=== PATIENT | female | born 1940 | race Caucasian/White ===

== ENCOUNTER 2019-06-15 16:31 | Inpatient (IN) ==
--- NOTE | 2019-06-15 16:40 | Diag Imaging Result Doc PS360 ---
EXAM: CHEST-PORTABLE HISTORY: possible stroke TECHNIQUE: Single view COMPARISON: None. FINDINGS: The lungs are well expanded. The heart is not enlarged. The vessels are not distended. There are no infiltrates. No effusion identified. IMPRESSION: Negative exam. Electronically signed by Rolo Otto 06/15/2019 4:37 PM
--- NOTE | 2019-06-15 16:42 | Diag Imaging Result Doc PS360 ---
EXAM: CT HEAD W/O CONTRAST - 06/15/2019 HISTORY: possible stroke TECHNIQUE: CT head without contrast COMPARISON: None. FINDINGS: There is no evidence of intracranial hemorrhage, mass effect, midline shift, or hydrocephalus. There is no evidence of infarct, although acute infarcts may not be minimally visible. There is no evidence of skull fracture. Visualized portions of paranasal sinuses and mastoid air cells appear clear. IMPRESSION: No visible acute intracranial abnormality. This exam was performed using automated exposure control, adjustment of mA or kV according to patient size, and/or use of iterative reconstruction technique. Electronically signed by Guido Rangel 06/15/2019 4:40 PM
[2019-06-15 17:45] LABS: URINE SOURCE CLEAN CATCH
[2019-06-15 17:49] LABS: BILIRUBIN URINE NEGATIVE (NEGATIVE); BLOOD URINE NEGATIVE (NEGATIVE); COLOR YELLOW; GLUCOSE URINE NEGATIVE (NEGATIVE); KETONE URINE NEGATIVE (NEGATIVE); LEUKOCYTES URINE SMALL (NEGATIVE); NITRITE URINE NEGATIVE (NEGATIVE); PH URINE 5.5; PROTEIN URINE NEGATIVE (NEGATIVE); SP GRAVITY URINE 1.011; TURBIDITY URINE HAZY (CLEAR); UROBILINOGEN URINE NORMAL (NORMAL)
--- NOTE | 2019-06-15 17:50 | EKG Report ---
Test Performed on : 06/15/2019 5:44:38 PM Test Reason : Possible stroke Blood Pressure : / mmHG Vent. Rate : 090 BPM Atrial Rate : 090 BPM P-R Int : 188 ms QRS Dur : 146 ms QT Int : 438 ms P-R-T Axes : 050 -29 097 degrees QTc Int : 535 ms Sinus rhythm. with occasional premature ventricular complexes. Left bundle branch block Abnormal ECG No previous ECGs available Unconfirmed Result
[2019-06-15 17:52] LABS: UR EPITHELIAL CELLS <10 /HPF (<10); URINE BACTERIA 1+ /HPF; URINE CASTS NONE SEEN; URINE CRYSTALS NONE SEEN; URINE RBC <10 /HPF (<10); URINE SMALL ROUND CELLS NONE SEEN; URINE YEAST NONE SEEN
[2019-06-15 18:05] LABS: UR AMPHETAMINES QUAL NONE DETECTED (NONE DETECT); UR BARBITUATES QUAL NONE DETECTED (NONE DETECT); UR BENZODIAZEPIN QUAL NONE DETECTED (NONE DETECT); UR CANNABINOIDS QUAL NONE DETECTED (NONE DETECT); UR COCAINE QUAL NONE DETECTED (NONE DETECT); UR METHADONE QUAL NONE DETECTED (NONE DETECT); UR METHAMPHETAMINE QUAL NONE DETECTED (NONE DETECT); UR OPIATES QUAL NONE DETECTED (NONE DETECT); UR OXYCODONE QUAL NONE DETECTED (NONE DETECT); UR PCP QUAL NONE DETECTED (NONE DETECT); UR PROPOXYPHENE QUAL NONE DETECTED (NONE DETECT); UR TCA QUAL NONE DETECTED (NONE DETECT)
[2019-06-15 18:11] LABS: BASO# 0.03 X1000 (0.0-0.2); BASO% 0.3 % (0.0-0.8); EOS# 0.13 X1000 (0.0-0.7); EOS% 1.3 % (0.0-10.0); HEMATOCRIT 39.7 % (37.0-47.0); HEMOGLOBIN 12.4 g/dL (12.0-16.0); IMM GRAN# 0.02 X1000 (0.0-0.04); IMM GRAN% 0.2 % (0.0-0.5); LYMPH# 2.54 X1000 (1.2-3.4); LYMPH% 25.9 % (20.5-51.1); MCH 29.2 PG (27-31); MCHC 31.2 g/dL (33-37); MCV 93.6 FL (81-99); MONO# 0.68 X1000 (0.11-0.59); MONO% 6.9 % (1.7-9.3); MPV 10.1 FL (7.4-10.4); NEUT% 65.4 % (42.2-75.2); PLT 317 X1000 (130-400); RBC 4.24 XMIL (4.2-5.4); RDW 12.1 % (11.5-14.5)
[2019-06-15 18:28] LABS: INR 0.99; PROTIME 13.6 Seconds (11.0-16.0); PTT 26.8 Seconds (22.3-41.8)
[2019-06-15 18:30] LABS: AGAP 14; ALBUMIN 4.3 g/dL (3.5-5.0); ALKALINE PHOSPHATASE 68 U/L (32-104); BUN 14 mg/dL (8-22); CALCIUM 9.1 mg/dL (8.8-10.2); CHLORIDE 107 mmol/L (98-107); COSMO 286; CREATININE 0.5 mg/dL (0.5-0.9); ESTIMATED GFR > 60; GLUCOSE 106 mg/dL (70-104); GOT 19 U/L (10-30); GPT 16 U/L (10-36); POTASSIUM 4.1 mmol/L (3.5-5.1); SODIUM 143 mmol/L (136-145); TCO2 23 mmol/L (25-35); TOTAL PROTEIN 7.3 g/dL (6.3-8.3)
--- NOTE | 2019-06-15 18:39 | ED EKG INTERP ---
This chart was entered by Felicitas Weiner Scribe, acting as scribe for Bhavana Omer MD. EKG Interpretation - EKG Time of EKG reading by physician:: 17:44 EKG Read and Signed by:: Bhavana Omer EKG Interpretation (*Must complete 3 of following elements*): Abnormal Rate: 90 Rhythm: SR w/occ PVCs [place]: normal QRS: LBB MI Interval: normal ST Wave: normal Attestation - Physician/ EM Attestation Patient care was provided by Advanced Practice Provider:: No The physician spent face to face time with patient:: Yes Advanced Practice Provider documentation review:: Supervising physician onsite and consulted in the evaluation and care of this patient. The physician did have a face to face encounter with the patient. This chart was documented by the indicated scribe, (Felicitas Weiner Scribe) and accurately reflects the services I performed and decisions made by me, Bhavana Omer MD, as attested by the provider's signature.
--- NOTE | 2019-06-15 18:56 | PROVIDER DOCUMENTATION ---
This chart was entered by Rona Finney Scribe, acting as scribe for Bhavana Omer MD. HPI-Neurological Disorder - General Stated Complaint: AMS Time Seen by Provider: 06/15/19 16:27 Source: patient, EMS Allergies/Adverse Reactions: Patient Allergies Allergy/AdvReac Type Severity Reaction Status Date / Time ampicillin Allergy Severe RASH Verified 06/15/19 19:13 atenolol [From Tenormin] Allergy Severe Unknown Verified 06/15/19 19:13 chlorpheniramine Allergy Severe Unknown Verified 06/15/19 19:13 [From AlleRx] chlorpheniramine maleate * Allergy Severe Unknown Verified 06/15/19 19:13 [From AlleRx] chlorpheniramine tannate * Allergy Severe Unknown Verified 06/15/19 19:13 [From AlleRx] codeine [Codeine] Allergy Severe NAUSEA Verified 06/15/19 19:13 erythromycin base Allergy Severe Unknown Verified 06/15/19 19:13 [Erythromycin Base] latex Allergy Severe Unknown Verified 06/15/19 19:13 levofloxacin [Levofloxacin] Allergy Severe SWELLING Verified 06/15/19 19:13 lidocaine HCl * Allergy Severe SHORTNESS Verified 06/15/19 19:13 [From Xylocaine] OF BREATH methylscopolamine nitrate * Allergy Severe Unknown Verified 06/15/19 19:13 [From AlleRx] nabumetone [From Relafen] Allergy Severe Unknown Verified 06/15/19 19:13 naproxen sodium * Allergy Severe Unknown Verified 06/15/19 19:13 [From Anaprox] pentazocine lactate * Allergy Severe Unknown Verified 06/15/19 19:13 [From Talwin] phenazopyridine HCl * Allergy Severe RASH Verified 06/15/19 19:13 [From Azo] phenylephrine tannate * Allergy Severe Unknown Verified 06/15/19 19:13 [From AlleRx] phenylpropanolamine Allergy Severe Unknown Verified 06/15/19 19:13 probenecid Allergy Severe SWELLING Verified 06/15/19 19:13 pseudoephedrine HCl * Allergy Severe Unknown Verified 06/15/19 19:13 [From AlleRx] pyrilamine tannate * Allergy Severe Unknown Verified 06/15/19 19:13 [From AlleRx] metoclopramide HCl * Allergy Mild low blood Verified 06/15/19 19:13 [From Reglan] pressure acetaminophen [From Percocet] Allergy Unknown Unknown Verified 06/15/19 19:13 meperidine HCl * Allergy Unknown Unknown Verified 06/15/19 19:13 [From Demerol] oxycodone HCl * Allergy Unknown Unknown Verified 06/15/19 19:13 [From Percocet] atorvastatin [From Lipitor] Allergy Unknown Verified 06/15/19 19:13 bee venom protein (honey bee) Allergy SWELLING Verified 06/15/19 19:13 bupropion [From Wellbutrin] Allergy Unknown Verified 06/15/19 19:13 celecoxib [From Celebrex] Allergy Unknown Verified 06/15/19 19:13 cetirizine [From Zyrtec] Allergy Unknown Verified 06/15/19 19:13 cholestyramine Allergy DIARRHEA Verified 06/15/19 19:13 cyclopentolate Allergy Unknown Verified 06/15/19 19:13 [From Cyclogyl] diclofenac [From Voltaren] Allergy ABDOMINAL Verified 06/15/19 19:13 PAIN diphenhydramine Allergy Unknown Verified 06/15/19 19:13 [From Benadryl] doxycycline Allergy FLUSHING Verified 06/15/19 19:13 duloxetine [From Cymbalta] Allergy Unknown Verified 06/15/19 19:13 ezetimibe [From Zetia] Allergy Unknown Verified 06/15/19 19:13 fexofenadine [From Della] Allergy Unknown Verified 06/15/19 19:13 guaifenesin [From Entex LA] Allergy Unknown Verified 06/15/19 19:13 lidocaine [From Xylocaine] Allergy SHORTNESS Verified 06/15/19 19:13 OF BREATH loratadine [From Claritin] Allergy Unknown Verified 06/15/19 19:13 meloxicam [From Mobic] Allergy Unknown Verified 06/15/19 19:13 meperidine [From Demerol] Allergy Unknown Verified 06/15/19 19:13 mepivacaine [From Carbocaine] Allergy Unknown Verified 06/15/19 19:13 naproxen [From Anaprox] Allergy Unknown Verified 06/15/19 19:13 oxycodone [From Percocet] Allergy Unknown Verified 06/15/19 19:13 pentazocine [From Talwin] Allergy Unknown Verified 06/15/19 19:13 phenazopyridine Allergy RASH Verified 06/15/19 19:13 [From Pyridium] phenylephrine [From AlleRx] Allergy Unknown Verified 06/15/19 19:13 pseudoephedrine Allergy ITCHING Verified 06/15/19 19:13 [From Sudafed] pyrilamine [From AlleRx] Allergy Unknown Verified 06/15/19 19:13 scopolamine [From AlleRx] Allergy Unknown Verified 06/15/19 19:13 sertraline [From Zoloft] Allergy Unknown Verified 06/15/19 19:13 sulfamethoxazole Allergy RASH Verified 06/15/19 19:13 [From Gantanol] venlafaxine [From Effexor] Allergy Unknown Verified 06/15/19 19:13 clarithromycin [From Biaxin] AdvReac Severe ABDOMINAL Verified 06/15/19 19:13 PAIN duloxetine HCl * AdvReac Severe Unknown Verified 06/15/19 19:13 [From Cymbalta] fluoxetine HCl * AdvReac Severe Unknown Verified 06/15/19 19:13 [From Prozac] mepivacaine HCl * AdvReac Severe Unknown Verified 06/15/19 19:13 [From Carbocaine] methylergonovine maleate * AdvReac Severe Unknown Verified 06/15/19 19:13 [From Methergine] nortriptyline HCl * AdvReac Severe Unknown Verified 06/15/19 19:13 [From Pamelor] omeprazole [From Prilosec] AdvReac Severe Unknown Verified 06/15/19 19:13 omeprazole magnesium * AdvReac Severe Unknown Verified 06/15/19 19:13 [From Prilosec] prednisone AdvReac Severe Unknown Verified 06/15/19 19:13 propranolol AdvReac Severe Unknown Verified 06/15/19 19:13 quinine [Quinine] AdvReac Severe Unknown Verified 06/15/19 19:13 sodium bicarbonate AdvReac Severe Unknown Verified 06/15/19 19:13 [From Zegerid] tramadol AdvReac Severe Unknown Verified 06/15/19 19:13 tramadol HCl * [From Ultram] AdvReac Severe Unknown Verified 06/15/19 19:13 valdecoxib [From Bextra] AdvReac Severe Unknown Verified 06/15/19 19:13 aspirin AdvReac Unknown Verified 06/15/19 19:13 benzonatate AdvReac Unknown Verified 06/15/19 19:13 desipramine [From Norpramin] AdvReac Unknown Verified 06/15/19 19:13 fluoxetine [From Prozac] AdvReac Unknown Verified 06/15/19 19:13 hydrocodone [From Lortab] AdvReac CONSTIPATIO Verified 06/15/19 19:13 N ketoprofen [From Orudis] AdvReac DIARRHEA Verified 06/15/19 19:13 metformin AdvReac Unknown Verified 06/15/19 19:13 methylergonovine AdvReac Unknown Verified 06/15/19 19:13 [From Methergine] metoclopramide [From Reglan] AdvReac DIZZINESS Verified 06/15/19 19:13 minocycline AdvReac DIARRHEA Verified 06/15/19 19:13 nicotine AdvReac Unknown Verified 06/15/19 19:13 norethindrone AdvReac Unknown Verified 06/15/19 19:13 [From Norlutate] nortriptyline [From Pamelor] AdvReac Unknown Verified 06/15/19 19:13 piroxicam [From Feldene] AdvReac NAUSEA/VOMI Verified 06/15/19 19:13 TING vectrin Allergy Severe RASH Uncoded 06/15/19 19:13 methscopolamine Allergy Unknown Uncoded 06/15/19 19:13 Home Medications: Home Medication List Medication Instructions Recorded Confirmed Last Taken Type 5Hydroxytryptophan(Oxitriptan) 200 mg PO WSUPPER 06/15/19 06/15/19 Unknown History [5-Htp] Budesonide [Rhinocort Allergy] 8.43 ml NS BID 06/15/19 06/15/19 Unknown History Carvedilol [Coreg] 12.5 mg PO BID 06/15/19 06/15/19 Unknown History Chlorpheniramine [Chlor-Trimeton] 4 mg PO BID 06/15/19 06/15/19 Unknown History Lactobacillus Rhamnosus GG 1 ea PO DAILY 06/15/19 06/15/19 Unknown History [Probiotic] Losartan [Cozaar] 25 mg PO WLUNCH 06/15/19 06/15/19 Unknown History Melatonin 20 mg PO HS 06/15/19 06/15/19 Unknown History - History of Present Illness-Neuro Nature of Presenting Problem: 79yof presents to ED by EMS cc 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 Ems reports pt is asking repetitive questions and family says that is unlike her. Family denies any recent fall or head trauma according to EMS. Pt reports she just came back from a trip to [place] and just feels sleepy. Pt denies MUNIZ/CP/SOB. Pt has hx of Lyme disease. Pt is A&Ox2, she is oriented to name but not date. Onset/Duration: reports: 1-3 hours ago Timing: reports: still present Approximate time patient was last seen normal?: 03:00 Character of Altered Mental Status: reports: confused Any recent trauma/injury?: reports: none Cognitive Baseline: alert but confused Gait Baseline: walks without assistance Associated Symptoms: reports: confusion, sleepy. denies: slurred speech Similar Symptoms Previously?: No Recently seen or treated by another doctor?: No Review of Systems - Adult - REVIEW OF SYSTEMS - ADULT ROS:: ROS per EMS Constitutional: reports: see HPI. denies: chills, fever, fatique Eyes: reports: no symptoms reported Ears, Nose, Mouth & Throat: reports: no symptoms reported Cardiovascular: reports: see HPI. denies: chest pain Respiratory: reports: see HPI. denies: shortness of breath Gastrointestinal: reports: no symptoms reported Genitourinary: reports: no symptoms reported Musculoskeletal: reports: no symptoms reported Integumentary: reports: no symptoms reported Neurological: reports: see HPI, other (AMS). denies: headache/migraines Psychiatric: reports: no symptoms reported Endocrine: reports: no symptoms reported Hematologic/Lymphatic: reports: no symptoms reported Allergic/Immunologic: reports: no symptoms reported All Other Systems: Reviewed and Negative Past History - Adult - PAST MEDICAL HISTORY-ADULT Review of Records: reports: Nursing Assessment Review, Medications Reviewed, Social history reviewed & non-contributory. Major Childhood Illnesses: reports: denies history Cardiovascular: reports: denies history Respiratory: reports: denies history Gastrointestinal: reports: denies history Obstetrical/Gynecological: reports: denies history Genitourinary: reports: denies history Musculoskeletal: reports: denies history Neurological: reports: denies history Endocrine/Immune: reports: denies history Other Conditions: reports: denies history - IMMUNIZATION STATUS Childhood Immunizations: See Nurse Assessment Flu Vaccine: See Nurse Assessment - FAMILY HISTORY Family History: reviewed, not pertinent Physical Exam- Neurological - Physical Exam-Neuro Initial Vital Signs Reviewed: Yes General Appearance: appears well, alert, no apparent distress. negative: anxious, combative Eye Exam: bilateral eye: normal inspection, PERRL, EOMI HENMT: normocephalic/atraumatic, moist mucous membranes. negative: angioedema Head Injury: no evidence of injury. negative: active bleeding, Garland's Sign, contusions, ecchymosis, flap, lacerations, raccoon eyes, swelling, tenderness Respiratory: chest non-tender, lungs clear, normal breath sounds, no pleuratic chest pain, no respiratory distress, no accessory muscle use. negative: crackles, rales, rhonchi, stridor, wheezing Cardiovascular: normal peripheral pulses, regular rate, rhythm, no edema, no gallop, no JVD, no murmur. negative: bradycardia, tachycardia Abdominal Exam: normal bowel sounds, non tender, soft, no organomegaly, no pulsatile mass. negative: distended, guarding, rigid, rebound Peripheral Pulses: radial (R): 2+, radial (L): 2+ Extremity: normal inspection. 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 negative: abnormal speech, facial asymmetry, facial droop, facial paresthesias Coordination/Gait: normal finger to nose, normal gait Motor/Sensory: no motor deficit, no sensory deficit, no pronator drift. 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 negative: facial droop, motor weakness, sensory deficit Integumentary: normal color, normal turgor, warm/dry. negative: diaphoresis, jaundice, rash Psych/Mental Status: normal mood/affect. negative: oriented x 3 (Oriented x2, to place and self), anxious, disheveled - Glascow Coma Scale Best Eye Response: (4) open spontaneously Best Verbal Response: (5) oriented Best Motor Response: (6) obeys commands Total Glascow Score: 15 Progress - PLAN OF CARE/RESULTS Progress/Plan/Lab Results: Vital Signs - 8 hr 06/15/19 16:59 Temperature 97.7 F Pulse Rate 92 H Respiratory Rate 18 Blood Pressure 163/93 O2 Sat by Pulse Oximetry 97 Laboratory Results - last 24 hr 06/15/19 06/15/19 06/15/19 17:40 17:40 17:58 WBC 9.80 RBC 4.24 Hgb 12.4 Hct 39.7 MCV 93.6 MCH 29.2 MCHC 31.2 L RDW Std Deviation 12.1 Plt Count 317 MPV 10.1 Immature Gran % (Auto) 0.2 Neut % (Auto) 65.4 Lymph % (Auto) 25.9 Ransom % (Auto) 6.9 Eos % (Auto) 1.3 Baso % (Auto) 0.3 Immature Gran # (Auto) 0.02 Neut # (Auto) 6.40 Lymph # (Auto) 2.54 Ransom # (Auto) 0.68 H Eos # (Auto) 0.13 Baso # (Auto) 0.03 PT INR PTT (Actin FS) Sodium Potassium Chloride Carbon Dioxide Anion Gap BUN Creatinine Estimated GFR/1.73 m2 BUN/Creatinine Ratio Glucose Calculated Osmolality Calcium Total Bilirubin AST ALT Alkaline Phosphatase Troponin T High Sens Total Protein Albumin Globulin Albumin/Globulin Ratio Urine Source CLEAN CATCH Urine Color YELLOW Urine Turbidity HAZY Urine pH 5.5 Ur Specific [place] 1.011 Urine Protein NEGATIVE Ur Glucose (Stick) NEGATIVE Ur Ketones (Stick) NEGATIVE Urine Blood NEGATIVE Urine Nitrite NEGATIVE Urine Bilirubin NEGATIVE Urobilinogen Dipstick NORMAL Urine Leukocytes SMALL A Urine WBC (Auto) 10-20 A Urine RBC (Auto) <10 U Epithel Cells (Auto) <10 Urine Bacteria (Auto) 1+ Urine Crystals NONE SEEN Small Round Cells NONE SEEN Urine Casts NONE SEEN Urine Yeast-like Cells NONE SEEN Urine Opiates Screen NONE DETECTED Ur Oxycodone Screen NONE DETECTED Urine Methadone Screen NONE DETECTED U Propoxyphene Qual NONE DETECTED Ur Barbituates Screen NONE DETECTED Ur Tricyclics Screen NONE DETECTED Ur Phencyclidine Scrn NONE DETECTED Ur Amphetamines Screen NONE DETECTED U Methamphetamines Scrn NONE DETECTED U Benzodiazepines Scrn NONE DETECTED Urine Cocaine Screen NONE DETECTED U Cannabinoids Screen NONE DETECTED 06/15/19 06/15/19 06/15/19 17:58 17:58 17:58 WBC RBC Hgb Hct MCV MCH MCHC RDW Std Deviation Plt Count MPV Immature Gran % (Auto) Neut % (Auto) Lymph % (Auto) Ransom % (Auto) Eos % (Auto) Baso % (Auto) Immature Gran # (Auto) Neut # (Auto) Lymph # (Auto) Ransom # (Auto) Eos # (Auto) Baso # (Auto) PT 13.6 INR 0.99 PTT (Actin FS) 26.8 Sodium 143 Potassium 4.1 Chloride 107 Carbon Dioxide 23 L Anion Gap 14 BUN 14 Creatinine 0.5 Estimated GFR/1.73 m2 > 60 BUN/Creatinine Ratio 28 Glucose 106 H Calculated Osmolality 286 Calcium 9.1 Total Bilirubin 0.30 AST 19 ALT 16 Alkaline Phosphatase 68 Troponin T High Sens 25 H Total Protein 7.3 Albumin 4.3 Globulin 3.0 Albumin/Globulin Ratio 1.0 Urine Source Urine Color Urine Turbidity Urine pH Ur Specific [place] Urine Protein Ur Glucose (Stick) Ur Ketones (Stick) Urine Blood Urine Nitrite Urine Bilirubin Urobilinogen Dipstick Urine Leukocytes Urine WBC (Auto) Urine RBC (Auto) U Epithel Cells (Auto) Urine Bacteria (Auto) Urine Crystals Small Round Cells Urine Casts Urine Yeast-like Cells Urine Opiates Screen Ur Oxycodone Screen Urine Methadone Screen U Propoxyphene Qual Ur Barbituates Screen Ur Tricyclics Screen Ur Phencyclidine Scrn Ur Amphetamines Screen U Methamphetamines Scrn U Benzodiazepines Scrn Urine Cocaine Screen U Cannabinoids Screen Orders Category Date Time Status Admit - [facility] Routine AdmDCTranf 06/15/19 19:36 Active Activity - Up with Assistance ORDERED Care 06/15/19 19:36 Active Cardiac Monitoring DIRECTED Care 06/15/19 16:17 Active DVT/PE Risk Assess/Protocol [QM] ORDERED Care 06/15/19 19:36 Active Finger Stick Blood Sugar (ED) DIRECTED Care 06/15/19 16:17 Active Intake and Output-Strict ORDERED Care 06/15/19 19:36 Active Misc. NRSG Communication Order DIRECTED Care 06/15/19 16:17 Active Oxygen Therapy- ED Nursing DIRECTED Care 06/15/19 16:17 Active Saline Loc NOW Care 06/15/19 16:17 Active Vital Signs Order Q 8-HR ASSESS Care 06/15/19 19:36 Active Regular Diet Diet 06/15/19 19:36 Active CHEST-PORTABLE [RAD] Stat Exams 06/15/19 16:[address] HEAD W/O CONTRAST [CT] Stat Exams 06/15/19 16:17 Completed CBC WITH ELECTRONIC DIFF [HEME] Stat Lab 06/15/19 17:58 Completed CBC WITH NO DIFF [HEME] Routine Lab 06/16/19 06:00 Ordered COMPREHENSIVE METABOLIC PANEL [CHEM] Routine Lab 06/16/19 06:00 Uncollected COMPREHENSIVE METABOLIC PANEL [CHEM] Stat Lab 06/15/19 17:58 Completed MAGNESIUM [CHEM] Routine Lab 06/16/19 06:00 Uncollected PROTIME WITH INR [COAG] Stat Lab 06/15/19 17:58 Completed PTT [COAG] Stat Lab 06/15/19 17:58 Completed TROPONIN T HIGH SENSITIVITY Stat Lab 06/15/19 17:58 Completed TSH Routine Lab 06/16/19 06:00 Uncollected URINALYSIS W/POSS RFLX CULT [URINALYSIS] Stat Lab 06/15/19 17:40 Completed URINE CULTURE [RM] Routine Lab 06/15/19 17:52 Ordered URINE DRUG SCREEN PL Stat Lab 06/15/19 17:40 Completed URINE MANUAL MICROSCOPIC [URINALYSIS] Stat Lab 06/15/19 17:40 Completed CefTRIAXONE [Rocephin] 1 gm Med 06/15/19 19:32 Discontinued 0.9% Sodium Chloride Inj [Ns] 50 ml IV NOW CefTRIAXONE [Rocephin] 1 gm Med 06/16/19 18:00 Active 0.9% Sodium Chloride Inj [Ns] 50 ml IV Q24H EKG [EKG] Stat Ther 06/15/19 16:17 Draft Result Diagrams: 06/15/19 17:58 06/15/19 17:58 - REASSESSMENT Reassessment #1 Time Reassessed: 18:40 Status: unchanged (Per family, pt still forgetful, asking questions which she asked 5 minutes ago. Pt forgot the topic of conversation while she was being re- evaluated by me.) - XRAY 1 XRAY: Bilateral XRAY Study: Chest Impression: See EMR Report (IMPRESSION: Negative exam. Electronically signed by Rolo Otto 06/15/2019 4:37 PM) - CT/MRI 1 CT Study: Head Impression: See EMR Report (IMPRESSION: No visible acute intracranial abnorm ality. This exam was performed using automated exposure control, adjustment of mA or kV according to patient size, and/or use of iterative reconstruction technique. Electronically signed by Guido Rangel 06/15/2019 4:40 PM) - CONSULTS/PCP/HOSPITALIST Notification #1 *Consult/PCP/Hospitalist*: d/w Rhea for hospitalist Time Discussed: 18:50 Consult Disposition: Will see in ED #2 Consult: d/w Dr Garrison Time Discussed: 19:10 Consult Disposition: Will see in ED, Admit Departure - Departure Date of Disposition Decision: 06/15/19 Time of Disposition Decision: 18:40 DIAGNOSIS: AMS (altered mental status), UTI (urinary tract infection), TIA (transient ischemic attack) Disposition: ADMITTED INPATIENT 09 Certified Medical Emergency: Emergent Condition: Stable Referrals and Follow-Ups: Daysi Bobby MD [Primary Care Provider] - - Critical Care Note This patient required my direct & personal management of CC.: No Attestation - Physician/ EM Attestation Patient care was provided by Advanced Practice Provider:: No The physician spent face to face time with patient:: Yes Advanced Practice Provider documentation review:: Supervising physician onsite and consulted in the evaluation and care of this patient. The physician did have a face to face encounter with the patient. - NIH Stroke Scale NIH Type: Initial Evaluation Level of Consciousness: 0-Alert LOC Questions (ask month and age): 0-Answers Both Correctly LOC Commands (ask to open & close eyes;make a fist, let go): 0-Obeys Both Correctly Best Gaze (horizontal eye movement): 0-Normal Visual (use finger movement, counting or visual threat): 0-No Visual Loss Facial Palsy (show teeth or raise eyebrows & close eyes tght: 0-Symmetrical Movement Motor Function-left arm: 0-Normal Motor Function-right arm: 0-Normal Motor Function-left le-Normal Motor Function-right le-Normal Limb Ataxia(osayru-msmg-bikcmp, or heel to mishra): 0-No Ataxia Sensory(pin prick to face,arms,trunk,legs-compare side/side): 0-No Ataxia Best Language(name item/read sentence.Ex-Down to Earth): 0-No Aphasia Dysarthria(Pt read words or say words Ex.Mama,Tip-Top,Thanks: 0-Normal Articulation Extinction and Inattention: 0-Normal NIH Total Score: 0 This chart was documented by the indicated scribe, (Rona Finney, [place]) and accurately reflects the services I performed and decisions made by me, Bhavana Omer MD, as attested by the provider's signature.
[2019-06-15] MEDS ORDERED: ROCEPHIN 1 GM in NS 50 ML IV ONE (19:32)
[2019-06-15] MEDS ORDERED: ROCEPHIN ONE (22:29)
[2019-06-15] MEDS ORDERED: NS 0 ML ONE (22:31)
[2019-06-16] MEDS ORDERED: TYLENOL PO ONE (04:09)
[2019-06-16 07:01] LABS: HEMATOCRIT 39.4 % (37.0-47.0); HEMOGLOBIN 12.1 g/dL (12.0-16.0); MCH 28.9 PG (27-31); MCHC 30.7 g/dL (33-37); MPV 10.4 FL (7.4-10.4); RBC 4.19 XMIL (4.2-5.4); RDW 12.2 % (11.5-14.5); WBC 8.59 X1000 (4.8-10.8)
[2019-06-16 07:35] LABS: AGAP 17; ALKALINE PHOSPHATASE 73 U/L (32-104); BUN 13 mg/dL (8-22); CHLORIDE 105 mmol/L (98-107); COSMO 289; CREATININE 0.7 mg/dL (0.5-0.9); ESTIMATED GFR > 60; GLUCOSE 136 mg/dL (70-104); GOT 20 U/L (10-30); GPT 15 U/L (10-36); MAGNESIUM 1.9 mg/dL (1.5-2.7); POTASSIUM 3.6 mmol/L (3.5-5.1); SODIUM 144 mmol/L (136-145); TCO2 22 mmol/L (25-35); TOTAL PROTEIN 7.2 g/dL (6.3-8.3)
[2019-06-16] MEDS ORDERED: FLONASE NAS SCH (09:00)
[2019-06-16] MEDS ORDERED: CHLOR-TRIMETON PO SCH (09:00)
[2019-06-16] MEDS ORDERED: COREG PO SCH (09:00)
--- NOTE | 2019-06-16 11:21 | Diag Imaging Result Doc PS360 ---
EXAM: MRI BRAIN W/WO CONTRAST HISTORY: acute memory loss TECHNIQUE: MRI brain without contrast. The patient refused contrasted images. COMPARISON: None. FINDINGS: Axial, sagittal, and coronal images obtained in multiple sequences. No recent infarct. Minimal microvascular ischemic changes. 9 mm right basal ganglia cyst. No other mass. No midline shift. No hydrocephalus. No epidural or subdural fluid collection. Normal orbits. No sinus opacification. IMPRESSION: No recent infarct and no significant microvascular ischemic changes. Electronically signed by Rolo Otto 06/16/2019 11:19 AM
[2019-06-16] MEDS ORDERED: COZAAR PO SCH (12:00)
[2019-06-16 14:45] VITALS: BP 139/77
--- NOTE | 2019-06-16 16:47 | HISTORY AND PHYSICAL ---
Patient seen and examined while in the ER. Note dictated the following morning. CHIEF COMPLAINT: Altered mental status. HISTORY OF PRESENT ILLNESS: Patient presented to the hospital via her daughter noting that she had just come back from [place] where she and the daughter did some type of glucose injections in their spine for Lyme disease. After returning, she became confused, frequently asking the same questions. Has no history of focal weakness, slurred speech, strokes. No recent fevers, chills, cough, congestion. No recent urinary symptoms. ALLERGIES: The patient has an extensive 4 page history of allergies. Please see the entire list. Oddly enough, patient claims she is allergic to Rocephin but can take Keflex. MEDICATIONS: Reviewed. Coreg 12.5 twice daily, Cozaar 25 at lunch, chlorpheniramine, although she is allergic to multiple other products that have chlorpheniramine 5 hydroxytryptophan. REVIEW OF SYSTEMS: As noted above. PAST MEDICAL HISTORY: Significant for hypertension. FAMILY HISTORY: Noncontributory to her current illness. CURRENT SOCIAL HISTORY: She does not smoke or drink. PHYSICAL EXAMINATION: VITAL SIGNS: Reviewed. Temp 97 degrees, pulse 92, respiratory rate 18, BP 163/93 sat 97% on room air. GENERAL: Patient is awake, pleasant. She is in no current respiratory distress. HEENT: Normocephalic. NECK: Supple. CARDIOVASCULAR: Regular rate. CHEST: Clear. ABDOMEN: Soft. EXTREMITIES: Moves all extremities. NEUROLOGIC: She has no focal cranial nerves 2-12 changes. She has no focal deficits although she does repeat herself. LABS: Reviewed. ASSESSMENT: 1. Acute delirium of undetermined origin. 2. Probable urinary tract infection. 3. Hypertension. PLAN: We are going to continue patient in the hospital. Check carotid MRI to rule out stroke. Ask neurology for assistance. We will not start antibiotics until we have a more clear picture on her urine given her multiple drug induced allergies. cc: Jai Garrison MD
[2019-06-16] MEDS ORDERED: PATIENT'S OWN MED PO SCH (17:00)
[2019-06-16] MEDS ORDERED: ROCEPHIN 1 GM in NS 50 ML IV SCH (18:00)
[2019-06-16] MEDS ORDERED: MELATONIN PO SCH (21:00)
[2019-06-16] MEDS ORDERED: KLONOPIN PO SCH (21:00)
--- NOTE | 2019-06-16 21:07 | NEUROLOGY CONSULTATION ---
DATE: 06/16/2019 HISTORY OF PRESENT ILLNESS: Ms. Wade is 79 years old and she had apparent abrupt change in mental status yesterday. She had an appointment with a folder seamer automatic and apparently seemed to be herself during that time early yesterday afternoon. Very shortly after that, her brother noted her to be unable to collect her thoughts. Daughter was summoned and found the patient to be awake, alert, attentive, speaking clearly without dysarthria, and without apparent language problem, but she seemed unable to remember some recent event. Daughter reports patient had just returned from [place] after receiving a series of spinal injections for management of an unrelated problem, and patient had long been aware of the appointment with the folder seamer automatic. Daughter reports patient asked her repeatedly why the vet was coming and what the vet was doing, and the patient denied recent visit to [place]. The patient did not complain of headache, vision disturbance, other discomfort. There was no apparent focal neurologic problem. There was never apparent altered awareness, unresponsiveness, lack of ability to pay attention. She was brought to the hospital, evaluated and admitted. She seemed gradually improved and is back to her baseline today. The patient remembers now that she had returned from [place] and had some conversation with her brother. She believes that she could remember only bits and pieces of the events over the next few hours. She remember eventually being in the hospital. She believes she is well today. There is not history of prior similar episode. There is no history of diagnosed stroke, seizure, serious head injury, other neurologic event. She does not use ethanol or illicit drugs. Her medicines include clonazepam 0.5 mg at bedtime, resumed in the last month or so, and she reports she had not missed a dose prior to this episode. Her urine drug screen was negative for benzodiazepine on admission here, which is typical for the very high threshold in this lab. Urine drug screen was negative for all other. Other labs included blood sugars 100s to 130s. Chemistry was otherwise unremarkable. Brain MRI done with and without contrast showed nothing definitely remarkable. 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 She has been afebrile. Heart rate has been stable 80s to 90s. Systolic blood pressures have ranged 110s to 160s. PHYSICAL EXAMINATION: On exam, Ms. Wade is awake, alert, attentive, appropriate, cheerful. She is completely oriented to all parameters. Speech is not dysarthric. Language function is intact. She was able to remember recent news and discuss that with accurate detail. Head and neck are unremarkable. Visual harvey are full, tested by confrontational finger counting. Extraocular movements are full. Facial motility is a little bit diminished bilaterally symmetrically. Gag is intact. Tongue is midline. Facial sensation is intact. She can hear. Shoulder shrug is equal. Strength is normal in the arms and legs. She did well on [id number] testing bilaterally. Sensation is intact to gross testing over the limbs. Proprioception is good at the great toe MTP joint bilaterally. I did not test her gait. IMPRESSION: History of amnesia, likely transient global amnesia with complete resolution. We discussed potential mechanisms, including spreading cortical depression and ischemia. I encouraged her to be aggressive with management of her risk factors for cerebrovascular ischemic problems. I believe that carotid ultrasound is planned and if that is unremarkable, I do not have any other suggestion. I told her to seek medical attention if there is another episode of similar or of different neurologic change. I will be glad to see her as an outpatient, if needed. Thanks for asking Neurology to see Ms. Wade. cc: MD KANIKA Bonner III
--- NOTE | 2019-06-17 03:48 | DISCHARGE SUMMARY ---
ADMISSION DATE: 06/15/2019 DISCHARGE DATE: 06/16/2019 DISCHARGE DIAGNOSES: 1. Acute amnesia, appears resolved. 2. Hypertension. 3. History of Lyme disease. CONSULTATIONS: None. PROCEDURES: None. BRIEF HOSPITAL COURSE: Patient was admitted to the hospital secondary to an acute amnestic event. Thankfully, her MRI was normal. Currently, she is back to normal per her daughter. Her memory is back intact and therefore she will be discharged home. DISPOSITION: Patient will be discharged home. She will follow up outpatient with her primary care. She was seen by Dr. Price while she was in the hospital. She can follow up with him as well. Greater than 30 minutes was spent in total care. cc: Jai Garrison MD
== END 2019-06-16 15:11 | disposition home or self-care (01) | DRG 72 ==
LOC: P.ED 16:31 → P.EDIPHOLD 22:59 → P.MEDSURG 06-16 06:36
PROVIDERS: ATTEND Family Medicine